=== PATIENT | female | born 1995 | race Caucasian/White ===

== ENCOUNTER → 2016-10-06 | Outpatient (CLI) | payer OTHER | LOC: FIMAGING 12:49 → EDSEX 13:45 | PROVIDERS: ATTEND Internal Medicine | DX: R10.9 Unspecified abdominal pain (principal); R93.49 Abnormal radiologic findings on diagnostic imaging of other urinary organs; Z87.890 Personal history of sex reassignment ==

== ENCOUNTER → 2016-10-22 | Outpatient (CLI) | payer OTHER ==
[~2016-10-22] MED LIST: IOPAMIDOL (ISOVUE-300) 100 ML BTL ONE
== END ==
LOC: FIMAGING 09:58 → EDSEX 09:58
PROVIDERS: ATTEND Internal Medicine
DX: N50.9 Disorder of male genital organs, unspecified (principal); Z85.47 Personal history of malignant neoplasm of testis
CPT/HCPCS: Q9967